=== PATIENT | male | born 1960 | race African-American/Black ===

== ENCOUNTER 2019-12-24 13:34 | Emergency (ER) | payer OTHER ==
[~2019-12-24] VITALS: Ht 172.7 cm; Wt 77.6 kg
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
[2019-12-24 14:06] LABS: ABSOLUTE NEUTROPHILS 12.7 thou/uL (1.4-8.2); BASOPHILS 0.9 % (0.0-2.0); EOSINOPHILS 0.2 % (0.0-3.0); HEMATOCRIT 41.1 % (42.0-52.0); HEMOGLOBIN 13.9 gm/dL (14.0-18.0); LYMPHOCYTES 18.7 % (24.0-44.0); MCHC 33.9 g/dL (28.0-37.0); MCV 82.6 fL (80.0-100.0); MONOCYTES 8.5 % (1.0-8.0); PLATELET COUNT 244 thou/uL (150-400); POLYS 71.7 % (36.0-66.0); RBC 4.98 mil/uL (4.50-6.00); RDW 14.9 % (10.5-14.5); WBC 17.7 thou/uL (4.0-11.0)
[2019-12-24 14:17] LABS: ANION GAP 9 mmol/L (7-16); BUN 10 mg/dL (7-18); CALCIUM 9.1 mg/dL (8.5-10.1); CHLORIDE 97 mmol/L (98-107); CO2 26 mmol/L (21-32); CREATININE 0.8 mg/dL (0.7-1.3); GLUCOSE 163 mg/dL (74-106); POTASSIUM 3.6 mmol/L (3.5-5.1); SODIUM 132 mmol/L (136-145)
[2019-12-24 14:18] LABS: APTT 26.7 Seconds (24.5-32.8); INR 1.2; PROTIME 11.9 Seconds (9.3-11.4)
[2019-12-24] MEDS ORDERED: NEXIUM20 MG PO (14:34)
[2019-12-24] MEDS ORDERED: ASA81BEC PO (14:34)
[2019-12-24] MEDS ORDERED: INSULIN (14:35)
[2019-12-24 14:36] LABS: SGOT 26 U/L (15-37); SGPT 37 U/L (30-65); TOTAL BILIRUBIN 0.9 mg/dL (0.2-1.0); TOTAL PROTEIN 8.8 g/dL (6.4-8.2); TROPONIN-I <0.06 ng/mL (<0.06)
[2019-12-24 15:39] LABS: AMP/METHAMP Negative (Negative); BARBITURATES Negative (Negative); BENZODIAZEPINES Negative (Negative); COCAINE POSITIVE (Negative); METHADONE Negative (Negative); OPIATES Negative (Negative); PCP Negative (Negative)
[2019-12-24 17:16] VITALS: BP 143/75
--- NOTE | 2019-12-25 08:44 | EKG ---
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
== END 2019-12-24 17:16 | disposition short-term general hospital (02) ==
LOC: ER 13:34
PROVIDERS: Emergency Medicine
DX: S02.0XXA Fracture of vault of skull, initial encounter for closed fracture (principal); S06.360A Traumatic hemorrhage of cerebrum, unspecified, without loss of consciousness, initial encounter; R41.0 Disorientation, unspecified; E11.9 Type 2 diabetes mellitus without complications; Z79.82 Long term (current) use of aspirin; Z79.899 Other long term (current) drug therapy; V89.2XXA Person injured in unspecified motor-vehicle accident, traffic, initial encounter; Y93.I9 Activity, other involving external motion; Y92.488 Other paved roadways as the place of occurrence of the external cause; Y99.8 Other external cause status